=== PATIENT | male | born 1990 | race Caucasian/White ===

== ENCOUNTER → 2023-11-18 | Outpatient (CLI) | payer OTHER | LOC: MHCPAIN 14:28 | DX: M47.817 Spondylosis without myelopathy or radiculopathy, lumbosacral region (principal); M51.26 Other intervertebral disc displacement, lumbar region; M79.2 Neuralgia and neuritis, unspecified | CPT/HCPCS: G0463 ==

== ENCOUNTER 2023-12-17 10:58 | Emergency (ER) | payer OTHER ==
[~2023-12-17] VITALS: Ht 175.3 cm; Wt 100.0 kg
[2023-12-17 11:02] VITALS: BP 133/88; TEMP 98.1
[2023-12-17] MEDS ORDERED: Polymyxin B/Trimethoprim Ophth Soln 10 ML BOTTLE OP ONE (11:30)
[2023-12-17 12:06] VITALS: PULSE 69
== END 2023-12-17 11:58 | disposition home or self-care (01) ==
LOC: COL.ER 10:58
DX: H10.9 Unspecified conjunctivitis (principal)

== ENCOUNTER → 2024-01-12 | Outpatient (CLI) | payer OTHER | LOC: MHCPAIN 15:29 | DX: M54.16 Radiculopathy, lumbar region (principal); G89.29 Other chronic pain | CPT/HCPCS: G0463 ==